=== PATIENT | female | born 1960 ===

== ENCOUNTER 2017-01-09 12:43 | Observation (INO) | payer MEDICAID ==
[2017-01-09] MEDS ORDERED: Sodium Chloride 0.9% 1,000 ML IV STA ×2 (13:25→19:51)
[2017-01-09 13:32] LABS: HEMATOCRIT 41.9 % (34.0-47.0); MEAN CELL VOLUME 89.9 fl (81.0-99.0); MEAN CORPUSCULAR HEMOGLOBIN 30.9 pg (27.0-31.0); MEAN CORPUSCULAR HGB CONC 34.4 g/dL (33.0-37.0); RED CELL DISTRIBUTION WIDTH 13.3 % (11.5-14.5); WHITE BLOOD COUNT 15.9 K/uL (4.8-10.8)
[2017-01-09 13:42] LABS: ALB/GLOB RATIO 1.1 (1.0-2.1); ALKALINE PHOSPHATASE 57 U/L (38-126); ALT/SGPT 30 U/L (9-52); AST/SGOT 42 U/L (14-36); BLOOD UREA NITROGEN 11 mg/dl (7-17); CALCIUM 9.6 mg/dL (8.4-10.2); CARBON DIOXIDE 23 mmol/L (22-30); CHLORIDE 101 mmol/L (98-107); GFR AFRICAN-AMERICAN > 60; GLUCOSE,RANDOM 104 mg/dL (65-105); POTASSIUM 4.4 MMOL/L (3.6-5.0); SODIUM 144 mmol/l (132-148); TOTAL PROTEIN 8.9 G/DL (6.3-8.2)
--- NOTE | 2017-01-09 14:26 | ED PDOC ---
HPI: CCC, URI, Sore Throat Time Seen by Provider: 01/09/17 12:49 Chief Complaint (Nursing): Chest Pain Chief Complaint (Provider): Cough, feverish, chest pain when coughing History Per: Patient History/Exam Limitations: no limitations Have you had recent travel within the past 21 days to any of the following countries: [place], [place], [place] or [place]?: No Onset/Duration Of Symptoms: Days (2) Current Symptoms Are (Timing): Still Present Location Of Pain: Diffuse Myalgias, Headache Sick Contacts (Context): None Associated Symptoms: Fever, Chills, Sore Throat, Cough, Myalgias. denies: Sputum, Neck Pain, Sinus Drainage, Nasal Congestion, Nausea Ear Symptoms: Bilateral: None Severity: Moderate Pain Scale Rating Of: 7 Additional Complaint(s): Pt state she has been taking motrin for fever at home. Pt reports some nausea. Denies vomiting, diarrhea. Past Medical History Reviewed: Historical Data, Nursing Documentation, Vital Signs Vital Signs: Last Vital Signs Temp 98.8 F 01/09/17 15:56 Pulse 98 H 01/09/17 18:09 Resp 23 01/09/17 18:09 BP 140/80 01/09/17 18:09 Pulse Ox 97 01/09/17 18:09 - Medical History PMH: Arthritis, Asthma, Gastritis, HTN, Hypercholesterolemia, Hyperlipidemia, Migraine - Surgical History Surgical History: No Surg Hx - Family History Family History: States: Unknown Family Hx - Living Arrangements Living Arrangements: With Family - Social History Current smoker - smoking cessation education provided: No - Home Medications Home Medications: Ambulatory Orders Medication Instructions Recorded Omeprazole [Prilosec] 20 mg PO DAILY 04/10/15 Albuterol HFA [Ventolin HFA 90 2 puff IH Q4H #1 puff 01/15/16 mcg/actuation (8 g)] Losartan Potassium [Cozaar] 01/09/17 - Allergies Allergies/Adverse Reactions: Allergies Allergy/AdvReac Type Severity Reaction Status Date / Time No Known Allergies Allergy Verified 01/09/17 12:48 Review of Systems ROS Statement: Except As Marked, All Systems Reviewed And Found Negative Constitutional: Negative for: Fever Cardiovascular: Positive for: Chest Pain Respiratory: Positive for: Cough Physical Exam - Reviewed Nursing Documentation Reviewed: Yes Vital Signs Reviewed: Yes - Physical Exam Appears: Positive for: Well, Non-toxic, No Acute Distress Head Exam: Positive for: ATRAUMATIC, NORMAL INSPECTION, NORMOCEPHALIC Skin: Positive for: Normal Color, Warm, DRY Eye Exam: Positive for: Normal appearance ENT: Positive for: Normal ENT Inspection Neck: Positive for: Normal, Painless ROM Cardiovascular/Chest: Positive for: Regular Rate, Rhythm Respiratory: Positive for: CNT, Normal Breath Sounds Gastrointestinal/Abdominal: Positive for: Normal Exam, Bowel Sounds, Soft Back: Positive for: Normal Inspection Extremity: Positive for: Normal ROM Neurologic/Psych: Positive for: Alert, card cutter II-XII, Oriented - Laboratory Results Result Diagrams: 01/09/17 13:10 01/09/17 13:10 - ECG O2 Sat by Pulse Oximetry: 99 Medical Decision Making Medical Decision Making: Lactate 2.3 After 2 L lactate is 3.6 CXR normal WBC 15.6 Urine with wbc and bacteria Case discussed with Dr. Cabezas. Disposition - Clinical Impression Clinical Impression: Sepsis, URI (upper respiratory infection), UTI (urinary tract infection) - Patient ED Disposition Is Patient to be Admitted: Yes - Disposition Disposition Time: 19:57 Condition: GOOD - Pt Status Changed To: Hospital Disposition Of: Inpatient - Admit Certification Admit to Inpatient:: After my assessment, the patient will require hospitalization for at least two midnights. This is because of the severity of symptoms shown, intensity of services needed, and/or the medical risk in this patient being treated as an outpatient. - POA Present On Arrival: None
[2017-01-09] MEDS ORDERED: Albuterol-Ipratrop 3 mg / 0.5 (3 ml) UD INH STA (14:42)
--- NOTE | 2017-01-09 14:42 | RAD ---
HISTORY: chest pain cough, dizziness COMPARISON: 01/15/2016 TECHNIQUE: Chest PA and lateral FINDINGS: LUNGS: No focal airspace opacity. PLEURA: No significant pleural effusion identified. No pneumothorax apparent.Biapical pleural parenchymal thickening noted. CARDIOVASCULAR: Normal. OSSEOUS STRUCTURES: No significant abnormalities. VISUALIZED UPPER ABDOMEN: Normal. OTHER FINDINGS: None. IMPRESSION: No focal airspace opacity. No significant interval change.
[2017-01-09 15:19] LABS: VENOUS BLOOD GAS BASE EXCESS 4.2 mmol/L (0.0-2.0); VENOUS BLOOD GAS PCO2 55 mmHg (40-60); VENOUS BLOOD PH 7.36 (7.32-7.43)
[2017-01-09 15:35] LABS: RBC URINE 3 /hpf (0-3); URINE BACTERIA FEW (<OCC); URINE BILIRUBIN NEGATIVE (NEGATIVE); URINE BLOOD NEGATIVE (NEGATIVE); URINE COLOR STRAW (YELLOW); URINE GLUCOSE (UA) NEG (Normal); URINE KETONE NEGATIVE (NEGATIVE); URINE LEUKOCYTE ESTERASE MOD Leu/uL (Negative); URINE PROTEIN NEGATIVE (NEGATIVE); URINE UROBILINOGEN 0.2-1.0 mg/dL (0.2-1.0); WBC URINE 19 /hpf (0-5)
[2017-01-09] MEDS ORDERED: Albuterol-Ipratrop 3 mg / 0.5 (3 ml) UD ONE (16:55)
[2017-01-09] MEDS ORDERED: cefTRIAXone (Rocephin) 1 gm Inj ONE (19:28)
[2017-01-09] MEDS ORDERED: Albuterol HFA 90 mcg/actuation (8 g) IH SCH (20:00)
--- NOTE | 2017-01-09 20:12 | CP.PCM.HP ---
History of Present Illness - History of Present Illness History of Present Illness: CC: malaise, respiratory symptoms HPI: This is a 56 y/o female with MHx significant for asthma, HTN, HLD, gastritis and migraines who presents with malaise and mainly respiratory symptoms including productive cough, SOB. She also has n/v, but no diarrhea. She does have a sore throat as well as f/c. Symptoms started yesterday. No travel or sick contacts or unusual exposures. ROS: 14 systems reviewed and negative other than HPI MHx: asthma, HTN, HLD, gastritis and migraines SHx: None Allergies: NKDA Medications: as per med rec Family Hx: Reviewed, no relevant Social Hx: Lives with family, denies tobacco or significant EtOH use Present on Admission - Present on Admission Any Indicators Present on Admission: No Past Patient History - Past Social History Smoking Status: Never Smoked - CARDIAC Hx Hypercholesterolemia: Yes Hx Hypertension: Yes - PULMONARY Hx Asthma: Yes - NEUROLOGICAL Hx Migraine: Yes - MUSCULOSKELETAL/RHEUMATOLOGICAL Hx Arthritis: Yes - GASTROINTESTINAL Hx Gastritis: Yes - PSYCHIATRIC Hx Substance Use: No - ANESTHESIA Hx Anesthesia: No Meds Allergies/Adverse Reactions: Allergies Allergy/AdvReac Type Severity Reaction Status Date / Time No Known Allergies Allergy Verified 01/09/17 12:48 Results - Vital Signs Recent Vital Signs: Last Vital Signs Temp 98.8 F 01/09/17 15:56 Pulse 98 H 01/09/17 18:09 Resp 23 01/09/17 18:09 BP 140/80 01/09/17 18:09 Pulse Ox 99 01/09/17 19:59 - Labs Result Diagrams: 01/09/17 13:10 01/09/17 13:10 Labs: Laboratory Results - last 24 hr 01/09/17 01/09/17 18:30 19:10 Lactic Acid 3.6 H Grp A Beta Strep Ag Negative Assessment & Plan (1) Sepsis Assessment and Plan: 56 y/o female with sepsis 2/2 either UTI or respiratory infection (or both). 1) Sepsis/UTI/?PNA -f/u cultures -Repeat lactic acid -Continue ceftriaxone, will add azithromycin as well given respiratory symptoms -Cont IVF -Tylenol for fever 2) HTN -- cont home medications 3) DVT PPx -- SQ Lovenox Status: Acute (2) URI (upper respiratory infection) Status: Acute (3) UTI (urinary tract infection) Status: Acute (4) HTN (hypertension) Status: Acute
[2017-01-09] MEDS ORDERED: Albuterol-Ipratrop 3 mg / 0.5 (3 ml) UD INH PRN (20:26)
[2017-01-09] MEDS ORDERED: Azithromycin 500 MG in Sodium Chloride 0.9% 250 ML IVPB STA (20:27)
[2017-01-10] MEDS: Sodium Chloride 0.9% 1,000 ML IV SCH ×2 (00:10→06:07)
[2017-01-10 07:25] LABS: BASO % 0.3 % (0.0-2.0); EOS # 0.2 K/uL (0.0-0.7); EOS % 1.6 % (0.0-4.0); HEMATOCRIT 36.9 % (34.0-47.0); LYMPH # 3.3 K/uL (1.0-4.3); LYMPH % 24.1 % (20.0-40.0); MEAN CELL VOLUME 91.1 fl (81.0-99.0); MEAN CORPUSCULAR HEMOGLOBIN 30.5 pg (27.0-31.0); MEAN CORPUSCULAR HGB CONC 33.5 g/dL (33.0-37.0); MEAN PLATELET VOLUME 10.5 fl (7.2-11.7); MONO # 1.2 K/uL (0.0-0.8); MONO % 9.2 % (0.0-10.0); NEUT # 8.8 K/uL (1.8-7.0); NEUT % 64.8 % (50.0-75.0); NRBC % 0.1 % (0.0-0.0); RED CELL DISTRIBUTION WIDTH 13.4 % (11.5-14.5); WHITE BLOOD COUNT 13.5 K/uL (4.8-10.8)
[2017-01-10 07:52] LABS: BLOOD UREA NITROGEN 11 mg/dl (7-17); CALCIUM 8.4 mg/dL (8.4-10.2); CARBON DIOXIDE 25 mmol/L (22-30); CHLORIDE 103 mmol/L (98-107); GFR AFRICAN-AMERICAN > 60; GLUCOSE,RANDOM 117 mg/dL (65-105); SODIUM 143 mmol/l (132-148)
[2017-01-10] MEDS ORDERED: Azithromycin 500 MG in Sodium Chloride 0.9% 250 ML IVPB SCH (09:00)
[2017-01-10] MEDS ORDERED: Enoxaparin 40 mg Syringe SC SCH (09:00)
[2017-01-10] MEDS ORDERED: Pantoprazole 40 mg EC Tab PO SCH (09:00)
--- NOTE | 2017-01-10 11:43 | CP.PCM.PN ---
Objective - Vital Signs/Intake and Output Vital Signs (last 24 hours): Temp Pulse Resp BP Pulse Ox 98.9 F 96 H 18 98/63 L 95 01/10/17 08:00 01/10/17 09:48 01/10/17 08:00 01/10/17 09:48 01/10/17 08:00 Intake and Output: 01/10/17 01/10/17 06:59 18:59 Intake Total 720 Output Total 300 Balance 420 - Medications Medications: Current Medications Acetaminophen (Tylenol 325mg Tab) 650 mg PO Q6 PRN PRN Reason: Fever >100.4 F Albuterol/Ipratropium (Duoneb 3 Mg/0.5 Mg (3 Ml) Ud) 3 ml INH RQ6 PRN PRN Reason: Shortness of Breath Last Admin: 01/10/17 05:47 Dose: 3 ml Enoxaparin Sodium (Lovenox) 40 mg SC DAILY CHAVO PRN Reason: Protocol Last Admin: 01/10/17 09:48 Dose: 40 mg Sodium Chloride (Sodium Chloride 0.9%) 1,000 mls @ 100 mls/hr IV .Q10H [facility] Stop: 01/10/17 15:59 Last Admin: 01/10/17 06:07 Dose: 100 mls/hr Ceftriaxone Sodium 1 gm/ (Sodium Chloride) 100 mls @ 100 mls/hr IVPB DAILY [facility] Last Admin: 01/10/17 10:37 Dose: 100 mls/hr Azithromycin 500 mg/ Sodium (Chloride) 250 mls @ 250 mls/hr IVPB DAILY [facility] Last Admin: 01/10/17 09:45 Dose: 250 mls/hr Losartan Potassium (Cozaar) 12.5 mg PO DAILY [facility] Last Admin: 01/10/17 09:48 Dose: Not Given Ondansetron HCl (Zofran Inj) 4 mg IVP Q6 PRN PRN Reason: Nausea/Vomiting Last Admin: 01/10/17 04:34 Dose: 4 mg Pantoprazole Sodium (Protonix Ec Tab) 40 mg PO DAILY [facility] Last Admin: 01/10/17 09:48 Dose: 40 mg - Labs Labs: 01/10/17 06:55 01/10/17 06:55
[2017-01-10 12:18] VITALS: RESP 20
--- NOTE | 2017-01-10 14:26 | RAD ---
HISTORY: r/o pneumonia COMPARISON: Comparison chest 01/09/2017. TECHNIQUE: Chest PA and lateral FINDINGS: LUNGS: There appears to be some minor bibasilar atelectasis left greater than right. Mild biapical pleural thickening. PLEURA: No significant pleural effusion identified. No pneumothorax apparent. CARDIOVASCULAR: Normal. OSSEOUS STRUCTURES: Minor multilevel degenerative spondylosis of the thoracic spine VISUALIZED UPPER ABDOMEN: Normal. OTHER FINDINGS: None. IMPRESSION: Mild bibasilar atelectasis left greater than right with mild biapical pleural thickening.
--- NOTE | 2017-01-10 15:29 | CP.PCM.DIS ---
Provider - Provider Date of Admission: 01/09/17 19:57 Attending physician: Fercho De La Cruz MD Primary care physician: Isaiah Morris MD Time Spent in preparation of Discharge (in minutes): 35 Diagnosis - Discharge Diagnosis (1) Sepsis Status: Acute (2) UTI (urinary tract infection) Status: Acute (3) URI (upper respiratory infection) Status: Acute (4) Mild intermittent asthma Status: Chronic (5) HTN (hypertension) Status: Chronic Hospital Course - Lab Results Lab Results: Most Recent Lab Values WBC 13.5 K/uL (4.8-10.8) H 01/10/17 06:55 RBC 4.05 Mil/uL (3.80-5.20) 01/10/17 06:55 Hgb 12.4 g/dL (12.0-16.0) D 01/10/17 06:55 Hct 36.9 % (34.0-47.0) 01/10/17 06:55 MCV 91.1 fl (81.0-99.0) 01/10/17 06:55 MCH 30.5 pg (27.0-31.0) 01/10/17 06:55 MCHC 33.5 g/dL (33.0-37.0) 01/10/17 06:55 RDW 13.4 % (11.5-14.5) 01/10/17 06:55 Plt Count 147 K/uL (130-400) 01/10/17 06:55 MPV 10.5 fl (7.2-11.7) 01/10/17 06:55 Neut % (Auto) 64.8 % (50.0-75.0) 01/10/17 06:55 Lymph % (Auto) 24.1 % (20.0-40.0) 01/10/17 06:55 [place] % (Auto) 9.2 % (0.0-10.0) 01/10/17 06:55 Eos % (Auto) 1.6 % (0.0-4.0) 01/10/17 06:55 Baso % (Auto) 0.3 % (0.0-2.0) 01/10/17 06:55 Neut # 8.8 K/uL (1.8-7.0) H 01/10/17 06:55 Lymph # 3.3 K/uL (1.0-4.3) 01/10/17 06:55 [place] # 1.2 K/uL (0.0-0.8) H 01/10/17 06:55 Eos # 0.2 K/uL (0.0-0.7) 01/10/17 06:55 Baso # 0.0 K/uL (0.0-0.2) 01/10/17 06:55 pO2 20 mm/Hg (30-55) L 01/09/17 15:15 VBG pH 7.36 (7.32-7.43) 01/09/17 15:15 VBG pCO2 55 mmHg (40-60) 01/09/17 15:15 VBG HCO3 26.4 mmol/L 01/09/17 15:15 VBG Total CO2 32.8 mmol/L (22-28) H 01/09/17 15:15 VBG O2 Sat (Calc) 35.3 % (40-65) L 01/09/17 15:15 VBG Base Excess 4.2 mmol/L (0.0-2.0) H 01/09/17 15:15 VBG Potassium 4.4 mmol/L (3.6-5.2) 01/09/17 15:15 Sodium 137.0 mmol/L (132-148) 01/09/17 15:15 Chloride 103.0 mmol/L (98-107) 01/09/17 15:15 Glucose 103 mg/dL (65-105) 01/09/17 15:15 Lactate 2.3 mmol/L (0.7-2.1) H 01/09/17 15:15 FiO2 21.0 % 01/09/17 15:15 Sodium 143 mmol/l (132-148) 01/10/17 06:55 Potassium 4.0 MMOL/L (3.6-5.0) 01/10/17 06:55 Chloride 103 mmol/L (98-107) 01/10/17 06:55 Carbon Dioxide 25 mmol/L (22-30) 01/10/17 06:55 Anion Gap 19 (10-20) 01/10/17 06:55 BUN 11 mg/dl (7-17) 01/10/17 06:55 Creatinine 0.9 mg/dL (0.7-1.2) 01/10/17 06:55 Est GFR ( Amer) > 60 01/10/17 06:55 Est GFR (Non-Af Amer) > 60 01/10/17 06:55 Random Glucose 117 mg/dL (65-105) H 01/10/17 06:55 Lactic Acid 1.1 MMOL/L (0.7-2.1) 01/10/17 12:45 Calcium 8.4 mg/dL (8.4-10.2) 01/10/17 06:55 Total Bilirubin 1.0 mg/dl (0.2-1.3) 01/09/17 13:10 AST 42 U/L (14-36) H D 01/09/17 13:10 ALT 30 U/L (9-52) 01/09/17 13:10 Alkaline Phosphatase 57 U/L (38-126) 01/09/17 13:10 Troponin I < 0.0120 ng/mL (0.00-0.120) 01/09/17 13:10 Total Protein 8.9 G/DL (6.3-8.2) H 01/09/17 13:10 Albumin 4.6 g/dL (3.5-5.0) 01/09/17 13:10 Globulin 4.3 gm/dL (2.2-3.9) H 01/09/17 13:10 Albumin/Globulin Ratio 1.1 (1.0-2.1) 01/09/17 13:10 Venous Blood Potassium 4.4 mmol/L (3.6-5.2) 01/09/17 15:15 Urine Color Straw (YELLOW) 01/09/17 15:00 Urine Clarity Clear (Clear) 01/09/17 15:00 Urine pH 7.0 (5.0-8.0) 01/09/17 15:00 Ur Specific [place] 1.008 (1.003-1.030) 01/09/17 15:00 Urine Protein Negative mg/dL (NEGATIVE) 01/09/17 15:00 Urine Glucose (UA) Neg mg/dL (Normal) 01/09/17 15:00 Urine Ketones Negative mg/dL (NEGATIVE) 01/09/17 15:00 Urine Blood Negative (NEGATIVE) 01/09/17 15:00 Urine Nitrate Negative (NEGATIVE) 01/09/17 15:00 Urine Bilirubin Negative (NEGATIVE) 01/09/17 15:00 Urine Urobilinogen 0.2-1.0 mg/dL (0.2-1.0) 01/09/17 15:00 Ur Leukocyte Esterase Mod [place]/uL (Negative) 01/09/17 15:00 Urine RBC (Auto) 3 /hpf (0-3) 01/09/17 15:00 Urine Microscopic WBC 19 /hpf (0-5) H 01/09/17 15:00 Ur Squamous Epith Cells 2 /hpf (0-5) 01/09/17 15:00 Urine Bacteria Few (<OCC) H 01/09/17 15:00 Influenza Typ A,B (EIA) Negative for flu a/b (NEGATIVE) 01/09/17 13:46 Grp A Beta Strep Ag Negative (NEGATIVE) 01/09/17 19:10 - Hospital Course Hospital Course: 56 y/o lady with hx of ZHTN, Gastritis, Mild Asthma, came in because of fever and cough. Noted to have fever, elevated WBC and elevated Lactate. Urinalysis showed WBCs and leukoest. She was admitted to Telemetry , started on IVF hydration and IV antibitics. Influenza A and B neg. CXR : no infiltrate. Blood and Urine c/s sent . Patient's sxs improved , Her Lactate became normal , WBC trended down and is now afebrile. She received 2 days of IV antibitotics. Pt wants to go home and refused further IV antibiotics in the hospital, refused to wait for culture results. (1) Sepsis sec to UTI and URI Status: Acute IVF hydration started on IV ceftriaxone and Azithro Blood c/s, Urine c/s: pending Pt refused to stay for further IV abx and wants to go home. Daughter at bedside , understands explanation of risks, benefits Elevated lactate= 3 , rpt Lactate :normalized no fever, URI sxs improved (2) UTI (urinary tract infection) Status: Acute UA : showed WBCs and leukoesterase on IV ceftriaxone urine c/s; pending (3) URI (upper respiratory infection) Status: Acute URI sxs improved rpt CXR : no infiltrate o IV ceftriaxone and Azithro (4) Mild intermittent asthma Status: Chronic Albuterol prn (5) HTN (hypertension) Status: Chronic on Losartan Discharge Exam - Head Exam Head Exam: ATRAUMATIC, NORMAL INSPECTION, NORMOCEPHALIC - Eye Exam Eye Exam: EOMI, Normal appearance, PERRL Pupil Exam: NORMAL ACCOMODATION - ENT Exam ENT Exam: Mucous Membranes Moist, Normal External Ear Exam - Neck Exam Neck exam: Full Rom - Respiratory Exam Respiratory Exam: Rhonchi, NORMAL BREATHING PATTERN. absent: Rales, Wheezes, Respiratory Distress - Cardiovascular Exam Cardiovascular Exam: REGULAR RHYTHM, +S1, +S2 - GI/Abdominal Exam GI & Abdominal Exam: Normal Bowel Sounds, Soft. absent: Unremarkable - Extremities Exam Extremities exam: full ROM, normal capillary refill, normal inspection, pedal pulses present - Neurological Exam Neurological exam: Alert, CN II-XII Intact, Normal Gait, Oriented x3, Reflexes Normal - Psychiatric Exam Psychiatric exam: Normal Affect, Normal Mood - Skin Skin Exam: Dry, Intact, Normal Color, Warm Discharge Plan - Discharge Medications Prescriptions: levoFLOXacin [Levaquin] 500 mg PO DAILY #7 tab - Follow Up Plan Condition: GOOD Disposition: HOME/ ROUTINE Additional Instructions: ff up with PMD dewayne Referrals: Isaiah Morris MD [Primary Care Provider] -
[2017-01-10 17:08] VITALS: BP 116/73; PULSE 83; TEMP 98; O2SAT 96
== END 2017-01-10 17:15 | disposition home or self-care (01) ==
LOC: H.ER 12:43 → H.EROBSV 16:04 → OBSVTOIN 19:57 → INTOOBSV 19:57 → H.ERHOLD 19:57 → H.TEL 22:52
PROVIDERS: ADMIT Internal Medicine; ATTEND Internal Medicine
DX: A41.9 Sepsis, unspecified organism (principal); E78.00 Pure hypercholesterolemia, unspecified; E78.5 Hyperlipidemia, unspecified; G43.909 Migraine, unspecified, not intractable, without status migrainosus; J45.20 Mild intermittent asthma, uncomplicated; K29.70 Gastritis, unspecified, without bleeding; N39.0 Urinary tract infection, site not specified; J06.9 Acute upper respiratory infection, unspecified; I10 Essential (primary) hypertension

== ENCOUNTER 2017-01-25 11:26 | Emergency (ER) | payer MEDICAID ==
[2017-01-25 11:36] VITALS: BP 144/68; RESP 20; TEMP 98.4; O2SAT 99
--- NOTE | 2017-01-25 12:20 | ED PDOC ---
HPI: General Adult Time Seen by Provider: 01/25/17 11:45 Chief Complaint (Nursing): Chest Pain Chief Complaint (Provider): Rash, cough History Per: Patient Additional Complaint(s): Pt. states for the past 6 months she's had intermittent episodes of cough and wheezing. Over the past 2-3 weeks symptoms have worsened and now involve a pruritic intermittent erythematous rash on neck, around mouth, and around both eyes. Currently without any symptoms. Denies hx of previous allergic reactions, throat swelling, fever, chest pain. Past Medical History Reviewed: Historical Data, Nursing Documentation, Vital Signs Vital Signs: Last Vital Signs Temp 98.4 F 01/25/17 11:35 Pulse 70 01/25/17 11:35 Resp 20 01/25/17 11:35 BP 144/68 01/25/17 11:35 Pulse Ox 99 01/25/17 11:35 - Medical History PMH: Arthritis, Asthma, Gastritis, HTN, Hypercholesterolemia, Hyperlipidemia, Migraine Denies: HIV, Chronic Kidney Disease - Family History Family History: States: No Known Family Hx - Home Medications Home Medications: Ambulatory Orders Medication Instructions Recorded Omeprazole [Prilosec] 20 mg PO DAILY 04/10/15 Albuterol HFA [Ventolin HFA 90 2 puff IH Q4H #1 puff 01/15/16 mcg/actuation (8 g)] Losartan Potassium [Cozaar] 12.5 mg PO DAILY 01/09/17 levoFLOXacin [Levaquin] 500 mg PO DAILY #7 tab 01/10/17 Albuterol 0.083% [Albuterol 3 ml IH Q4 PRN #50 neb 01/25/17 Sulfate 3 Ml] DiphenhydrAMINE [Benadryl] 1 - 2 cap PO Q4H PRN #30 cap 01/25/17 Methylprednisolone [Medrol Dose 4 mg PO DAILY #21 mg 01/25/17 Pack (21 tabs)] Nebulizer [Aeroeclipse] 1 each MC Q4 PRN #1 each 01/25/17 - Allergies Allergies/Adverse Reactions: Allergies Allergy/AdvReac Type Severity Reaction Status Date / Time No Known Allergies Allergy Verified 01/09/17 12:48 Review of Systems ROS Statement: Except As Marked, All Systems Reviewed And Found Negative Respiratory: Positive for: Cough, Wheezing Skin: Positive for: Rash Physical Exam - Reviewed Nursing Documentation Reviewed: Yes Vital Signs Reviewed: Yes - Physical Exam Appears: Positive for: Well, Non-toxic, No Acute Distress Head Exam: Positive for: ATRAUMATIC, NORMAL INSPECTION, NORMOCEPHALIC Skin: Positive for: Normal Color, Warm. Negative for: Rash Eye Exam: Positive for: EOMI, Normal appearance, PERRL ENT: Positive for: Normal ENT Inspection Neck: Positive for: Normal, Painless ROM Cardiovascular/Chest: Positive for: Regular Rate, Rhythm Respiratory: Positive for: Normal Breath Sounds. Negative for: Wheezing Gastrointestinal/Abdominal: Positive for: Normal Exam, Soft. Negative for: Tenderness Back: Positive for: Normal Inspection Extremity: Positive for: Normal ROM Neurologic/Psych: Positive for: Alert, Oriented - ECG ECG: Positive for: Interpreted By Me ECG Rhythm: Positive for: Sinus Rhythm. Negative for: ST/T Changes Rate: 74 O2 Sat by Pulse Oximetry: 99 Disposition - Clinical Impression Clinical Impression: Hay fever with asthma - Patient ED Disposition Is Patient to be Admitted: No - Disposition Disposition: Routine/Home Disposition Time: 12:10 Condition: STABLE Prescriptions: Nebulizer [Aeroeclipse] 1 each MC Q4 PRN #1 each PRN Reason: Wheezing Albuterol 0.083% [Albuterol Sulfate 3 Ml] 3 ml IH Q4 PRN #50 neb PRN Reason: Wheezing DiphenhydrAMINE [Benadryl] 1 - 2 cap PO Q4H PRN #30 cap PRN Reason: Other Methylprednisolone [Medrol Dose Pack (21 tabs)] 4 mg PO DAILY #21 mg Instructions: Asthma (ED) Print Language: GERMAN
[2017-01-25 12:21] VITALS: PULSE 74
== END 2017-01-25 12:18 | disposition home or self-care (01) ==
LOC: H.ER 11:26
DX: J45.909 Unspecified asthma, uncomplicated (principal)

== ENCOUNTER 2017-05-21 12:21 | Inpatient (IN) | payer MEDICAID ==
[2017-05-21] MEDS ORDERED: Albuterol-Ipratrop 3 mg / 0.5 (3 ml) UD INH STA ×2 (13:16→13:17)
--- NOTE | 2017-05-21 13:38 | ED PDOC ---
HPI: SOB/CHF/COPD Time Seen by Provider: 05/21/17 12:34 Chief Complaint (Nursing): Shortness Of Breath Chief Complaint (Provider): Cough with chest pain History Per: Patient History/Exam Limitations: no limitations Onset/Duration Of Symptoms: Days (x 2 weeks) Current Symptoms Are (Timing): Still Present Additional Complaint(s): Vickie is a 56 y/o female with a past medical history of asthma and hypertension, who presents to the ED complaining of a dry cough associated with posttussive vomiting, ongoing for 2 weeks. has been using her nebulizer and pump at home without relief. She reports chest pain with cough only. Denies fever and palpitations. PMD: Unknown Past Medical History Reviewed: Historical Data, Nursing Documentation, Vital Signs Vital Signs: Last Vital Signs Temp 98.3 F 05/21/17 13:01 Pulse 76 05/21/17 13:01 Resp 16 05/21/17 13:47 BP 131/71 05/21/17 13:01 Pulse Ox 100 05/21/17 16:37 - Medical History PMH: Arthritis, Asthma, Gastritis, HTN, Hypercholesterolemia, Hyperlipidemia, Migraine Denies: HIV, Chronic Kidney Disease - Surgical History Other surgeries: Tubal ligation - Family History Family History: States: Unknown Family Hx - Social History Current smoker - smoking cessation education provided: No Alcohol: None Drugs: Denies - Home Medications Home Medications: Ambulatory Orders Medication Instructions Recorded Omeprazole [Prilosec] 20 mg PO DAILY 04/10/15 Albuterol HFA [Ventolin HFA 90 2 puff IH Q4H #1 puff 01/15/16 mcg/actuation (8 g)] Losartan Potassium [Cozaar] 12.5 mg PO DAILY 01/09/17 levoFLOXacin [Levaquin] 500 mg PO DAILY #7 tab 01/10/17 Albuterol 0.083% [Albuterol 3 ml IH Q4 PRN #50 neb 01/25/17 Sulfate 3 Ml] DiphenhydrAMINE [Benadryl] 1 - 2 cap PO Q4H PRN #30 cap 01/25/17 Methylprednisolone [Medrol Dose 4 mg PO DAILY #21 mg 01/25/17 Pack (21 tabs)] Nebulizer [Aeroeclipse] 1 each MC Q4 PRN #1 each 01/25/17 - Allergies Allergies/Adverse Reactions: Allergies Allergy/AdvReac Type Severity Reaction Status Date / Time No Known Allergies Allergy Verified 05/21/17 12:25 Review of Systems ROS Statement: Except As Marked, All Systems Reviewed And Found Negative Constitutional: Negative for: Fever Cardiovascular: Positive for: Chest Pain (only with cough). Negative for: Palpitations Respiratory: Positive for: Cough Gastrointestinal: Positive for: Vomiting (posttussive) Physical Exam - Reviewed Nursing Documentation Reviewed: Yes Vital Signs Reviewed: Yes - Physical Exam Appears: Positive for: Non-toxic, No Acute Distress Head Exam: Positive for: ATRAUMATIC Skin: Positive for: Normal Color, Warm, Dry Eye Exam: Positive for: EOMI, Normal appearance, PERRL ENT: Positive for: Normal ENT Inspection Neck: Positive for: Normal, Painless ROM, Supple Cardiovascular/Chest: Positive for: Regular Rate, Rhythm. Negative for: Murmur Respiratory: Positive for: Wheezing (bilaterally) Gastrointestinal/Abdominal: Positive for: Normal Exam, Soft. Negative for: Tenderness Back: Positive for: Normal Inspection. Negative for: Vertebral Tenderness Extremity: Positive for: Normal ROM. Negative for: Pedal Edema, Deformity Neurologic/Psych: Positive for: Alert, Oriented - Laboratory Results Result Diagrams: 05/21/17 13:50 05/21/17 13:50 - ECG O2 Sat by Pulse Oximetry: 100 (RA) Pulse Ox Interpretation: Normal Medical Decision Making Medical Decision Making: Time: 13:16 Initial Impression: Asthma Exacerbation and Pleuritic Chest Pain Initial Plan: --CMP --CBC --Troponin I --EKG --CXR 2 views --Duoneb 3 ml INH --Solu-Medrol 125 mg IV --Peak Flow pre/post treatment --Pending reevaluation Time: 15:24 Chest X-Ray: FINDINGS: LUNGS: Question left upper lobe mass for which correlation with CT scan of the chest is recommended. PLEURA: No significant pleural effusion identified. No pneumothorax apparent. CARDIOVASCULAR: Normal. OSSEOUS STRUCTURES: No significant abnormalities. VISUALIZED UPPER ABDOMEN: Normal. OTHER FINDINGS: None. IMPRESSION: Question left upper lobe mass for which correlation with CT scan of the chest is recommended. Time: 15:58 --Ordered CT Chest w/o contrast Scribe Attestation: Documented by Elissa Garcia, acting as a scribe for Emma Bhatti MD Provider Scribe Attestation: All medical record entries made by the Scribe were at my direction and personally dictated by me. I have reviewed the chart and agree that the record accurately reflects my personal performance of the history, physical exam, medical decision making, and the department course for this patient. I have also personally directed, reviewed, and agree with the discharge instructions and disposition. Disposition - Clinical Impression Clinical Impression: Asthma exacerbation, Pneumonitis - Patient ED Disposition Is Patient to be Admitted: Yes - Disposition Disposition Time: 17:43 Condition: STABLE Forms: mobintent (Japanese) - Pt Status Changed To: Hospital Disposition Of: Inpatient - Admit Certification Admit to Inpatient:: After my assessment, the patient will require hospitalization for at least two midnights. This is because of the severity of symptoms shown, intensity of services needed, and/or the medical risk in this patient being treated as an outpatient. - POA Present On Arrival: None
[2017-05-21] MEDS ORDERED: Albuterol-Ipratrop 3 mg / 0.5 (3 ml) UD ONE ×2 (13:54→13:55)
[2017-05-21 13:58] LABS: BASO % 0.5 % (0.0-2.0); EOS # 0.2 K/uL (0.0-0.7); EOS % 1.9 % (0.0-4.0); HEMOGLOBIN 13.4 g/dL (12.0-16.0); LYMPH # 2.8 K/uL (1.0-4.3); MEAN CELL VOLUME 90.9 fl (81.0-99.0); MEAN CORPUSCULAR HEMOGLOBIN 30.2 pg (27.0-31.0); MEAN CORPUSCULAR HGB CONC 33.3 g/dL (33.0-37.0); MEAN PLATELET VOLUME 10.5 fl (7.2-11.7); MONO # 0.7 K/uL (0.0-0.8); MONO % 7.8 % (0.0-10.0); NEUT # 4.8 K/uL (1.8-7.0); NEUT % 56.8 % (50.0-75.0); NRBC % 0.1 % (0.0-0.0); RBC 4.43 Mil/uL (3.80-5.20); RED CELL DISTRIBUTION WIDTH 12.8 % (11.5-14.5); WHITE BLOOD COUNT 8.4 K/uL (4.8-10.8)
[2017-05-21 14:06] LABS: ALB/GLOB RATIO 1.2 (1.0-2.1); ALBUMIN 4.4 g/dL (3.5-5.0); ALT/SGPT 38 U/L (9-52); AST/SGOT 26 U/L (14-36); BLOOD UREA NITROGEN 13 mg/dl (7-17); CALCIUM 9.2 mg/dL (8.4-10.2); GFR AFRICAN-AMERICAN > 60; GFR NON-AFRICAN AMERICAN > 60
--- NOTE | 2017-05-21 15:26 | RAD ---
HISTORY: SOB COMPARISON: 01/10/2017 TECHNIQUE: Chest PA and lateral FINDINGS: LUNGS: Question left upper lobe mass for which correlation with CT scan of the chest is recommended. PLEURA: No significant pleural effusion identified. No pneumothorax apparent. CARDIOVASCULAR: Normal. OSSEOUS STRUCTURES: No significant abnormalities. VISUALIZED UPPER ABDOMEN: Normal. OTHER FINDINGS: None. IMPRESSION: Question left upper lobe mass for which correlation with CT scan of the chest is recommended.
[2017-05-21] MEDS ORDERED: cefTRIAXone (Rocephin) 1 gm Inj ONE (17:47)
--- NOTE | 2017-05-21 19:50 | CT ---
PROCEDURE: CT Chest without contrast HISTORY: Abnormal CXR COMPARISON: None. TECHNIQUE: Contiguous axial images were obtained through the chest without intravenous contrast enhancement. Sagittal and coronal reconstructions were performed. Radiation dose (DLP): 436 mGy-cm. This CT exam was performed using one or more of the following dose reduction techniques: Automated exposure control, adjustment of the mA and/or kV according to patient size, and/or use of iterative reconstruction technique. FINDINGS: LUNGS: There is a left upper lobe interstitial infiltrate/pneumonitis as well as a 5 millimeter nodule in the left upper lobe. MEDIASTINUM: Unremarkable thoracic aorta. No aneurysm. Normal sized heart. Main pulmonary artery unremarkable. No vascular congestion. No lymphadenopathy. PLEURA: No pleural fluid. No pneumothorax. BONES: No fracture. No destructive lesion. UPPER ABDOMEN: Grossly unremarkable. OTHER FINDINGS: None. IMPRESSION: There is a left upper lobe interstitial infiltrate/pneumonitis as well as a 5 millimeter nodule in the left upper lobe. Recommend 1 year follow-up.
[2017-05-21] MEDS ORDERED: Albuterol 0.083% Inhal Sol (2.5 mg/3 mL) UD IH PRN (21:28)
[2017-05-21] MEDS ORDERED: Pneumococcal 23-Valent Vaccine IM ONE (22:31)
[2017-05-22] MEDS: methylPREDNISolone 125 MG in Sodium Chloride 0.9% 50 ML IVPB SCH ×2 (01:48→13:23)
--- NOTE | 2017-05-22 09:42 | CARD ---
APPROVED REPORT EKG Measurement Heart [id number] [id number] <Conclusion> Normal sinus rhythm Normal ECG
[2017-05-23] MEDS: methylPREDNISolone 125 MG in Sodium Chloride 0.9% 50 ML IVPB SCH ×2 (00:08→13:37)
[2017-05-23 08:02] VITALS: RESP 20
--- NOTE | 2017-05-23 10:12 | CP.PCM.HP ---
History of Present Illness - History of Present Illness History of Present Illness: This is a 56 y/o female admitted for dry cough SOB . CXR showed pneumonitis. she was started on IV rocephin and solumedrol iv. Claims that symptoms has been going on for the past few days, Past Patient History - Past Medical History & Family History Past Medical History?: Yes - Past Social History Smoking Status: Never Smoked - CARDIAC Hx Hypercholesterolemia: Yes Hx Hypertension: Yes - PULMONARY Hx Asthma: Yes - NEUROLOGICAL Hx Migraine: Yes - HEENT Hx HEENT Problems: No - RENAL Hx Chronic Kidney Disease: No - ENDOCRINE/METABOLIC Hx Endocrine Disorders: No - HEMATOLOGICAL/ONCOLOGICAL Hx AIDS: No Hx Human Immunodeficiency Virus (HIV): No - INTEGUMENTARY Hx Dermatological Problems: No - MUSCULOSKELETAL/RHEUMATOLOGICAL Hx Arthritis: Yes Hx Falls: No - GASTROINTESTINAL Hx Gastritis: Yes - GENITOURINARY/GYNECOLOGICAL Hx Urinary Tract Infection: Yes - PSYCHIATRIC Hx Substance Use: No - SURGICAL HISTORY Hx Tubal Ligation: Yes - ANESTHESIA Hx Anesthesia: Yes Hx Anesthesia Reactions: No Hx Malignant Hyperthermia: No Meds Allergies/Adverse Reactions: Allergies Allergy/AdvReac Type Severity Reaction Status Date / Time No Known Allergies Allergy Verified 05/21/17 12:25 Results - Vital Signs Recent Vital Signs: Last Vital Signs Temp 97.7 F 05/23/17 08:01 Pulse 73 05/23/17 09:28 Resp 20 05/23/17 08:01 BP 125/73 05/23/17 09:28 Pulse Ox 94 L 05/23/17 08:01 - Labs Result Diagrams: 05/21/17 13:50 05/21/17 13:50
--- NOTE | 2017-05-23 10:13 | CP.PCM.DIS ---
Provider - Provider Date of Admission: 05/21/17 17:42 Attending physician: Nabor Holland MD Hospital Course - Lab Results Lab Results: Most Recent Lab Values WBC 8.4 K/uL (4.8-10.8) 05/21/17 13:50 RBC 4.43 Mil/uL (3.80-5.20) 05/21/17 13:50 Hgb 13.4 g/dL (12.0-16.0) 05/21/17 13:50 Hct 40.3 % (34.0-47.0) 05/21/17 13:50 MCV 90.9 fl (81.0-99.0) 05/21/17 13:50 MCH 30.2 pg (27.0-31.0) 05/21/17 13:50 MCHC 33.3 g/dL (33.0-37.0) 05/21/17 13:50 RDW 12.8 % (11.5-14.5) 05/21/17 13:50 Plt Count 190 K/uL (130-400) 05/21/17 13:50 MPV 10.5 fl (7.2-11.7) 05/21/17 13:50 Neut % (Auto) 56.8 % (50.0-75.0) 05/21/17 13:50 Lymph % (Auto) 33.0 % (20.0-40.0) 05/21/17 13:50 [place] % (Auto) 7.8 % (0.0-10.0) 05/21/17 13:50 Eos % (Auto) 1.9 % (0.0-4.0) 05/21/17 13:50 Baso % (Auto) 0.5 % (0.0-2.0) 05/21/17 13:50 Neut # 4.8 K/uL (1.8-7.0) 05/21/17 13:50 Lymph # 2.8 K/uL (1.0-4.3) 05/21/17 13:50 [place] # 0.7 K/uL (0.0-0.8) 05/21/17 13:50 Eos # 0.2 K/uL (0.0-0.7) 05/21/17 13:50 Baso # 0.0 K/uL (0.0-0.2) 05/21/17 13:50 Sodium 140 mmol/l (132-148) 05/21/17 13:50 Potassium 4.0 MMOL/L (3.6-5.0) 05/21/17 13:50 Chloride 102 mmol/L (98-107) 05/21/17 13:50 Carbon Dioxide 26 mmol/L (22-30) 05/21/17 13:50 Anion Gap 16 (10-20) 05/21/17 13:50 BUN 13 mg/dl (7-17) 05/21/17 13:50 Creatinine 0.9 mg/dL (0.7-1.2) 05/21/17 13:50 Est GFR ( Amer) > 60 05/21/17 13:50 Est GFR (Non-Af Amer) > 60 05/21/17 13:50 Random Glucose 142 mg/dL (65-105) H 05/21/17 13:50 Calcium 9.2 mg/dL (8.4-10.2) 05/21/17 13:50 Total Bilirubin 0.4 mg/dl (0.2-1.3) 05/21/17 13:50 AST 26 U/L (14-36) 05/21/17 13:50 ALT 38 U/L (9-52) 05/21/17 13:50 Alkaline Phosphatase 56 U/L (38-126) 05/21/17 13:50 Troponin I < 0.0120 ng/mL (0.00-0.120) 05/21/17 13:50 Total Protein 8.0 G/DL (6.3-8.2) 05/21/17 13:50 Albumin 4.4 g/dL (3.5-5.0) 05/21/17 13:50 Globulin 3.6 gm/dL (2.2-3.9) 05/21/17 13:50 Albumin/Globulin Ratio 1.2 (1.0-2.1) 05/21/17 13:50 - Hospital Course Hospital Course: This is a 56 y/o female admitted for cough and pneumonitis. She as started on IV solumedrol and IV rocephin and responded very well. Discharge Exam - Head Exam Head Exam: ATRAUMATIC Discharge Plan - Follow Up Plan Condition: STABLE Disposition: HOME/ ROUTINE
[2017-05-23 12:30] VITALS: BP 119/71; PULSE 80; TEMP 97.5; O2SAT 95
== END 2017-05-23 16:00 | disposition home or self-care (01) | DRG 541 ==
LOC: H.ER 12:21 → H.ERHOLD 17:42 → H.TEL 20:52
PROVIDERS: ADMIT Family Medicine; ATTEND Family Medicine
PROC: 3E0F73Z Introduction of Anti-inflammatory into Respiratory Tract, Via Natural or Artificial Opening (ICD-10-PCS; principal; 2017-05-21)
PROC: 3E0234Z Introduction of Serum, Toxoid and Vaccine into Muscle, Percutaneous Approach (ICD-10-PCS; 2017-05-21)
DX: J44.0 Chronic obstructive pulmonary disease with (acute) lower respiratory infection (principal); J18.9 Pneumonia, unspecified organism; J45.901 Unspecified asthma with (acute) exacerbation; I10 Essential (primary) hypertension; E78.5 Hyperlipidemia, unspecified; K29.70 Gastritis, unspecified, without bleeding; E78.00 Pure hypercholesterolemia, unspecified; Z23 Encounter for immunization; Z87.440 Personal history of urinary (tract) infections

== ENCOUNTER 2017-11-12 09:22 | Emergency (ER) | payer MEDICAID ==
[2017-11-12 09:25] VITALS: BMI 26.6
[2017-11-12] MEDS ORDERED: Sodium Chloride 0.9% 1,000 ML IV STA (09:39)
[2017-11-12] MEDS ORDERED: Iohexol 240 (50 ml) PO ONE (09:39)
[2017-11-12] MEDS ORDERED: Iohexol 240 (50 ml) ONE (09:53)
--- NOTE | 2017-11-12 09:56 | ED PDOC ---
HPI: General Adult Time Seen by Provider: 11/12/17 09:29 Chief Complaint (Nursing): Flu-like Symptoms Chief Complaint (Provider): Abd pain History Per: Patient History/Exam Limitations: no limitations Onset/Duration Of Symptoms: Days (3) Additional Complaint(s): Pt. with abd pain upper and frontal headache that is mild. Not worst headache of her life. No neck pain, numbness, tingles. No vision changes. Headache was gradual onset. Abd pain is constant. Had fever for 3 days. Today had diarrhea and vomiting. No weakness, body aches, cough, congestion, runny nose. Urinates more freq. Has had headaches similar in the past. Past Medical History Reviewed: Nursing Documentation, Vital Signs Vital Signs: Last Vital Signs Temp 99.6 F 11/12/17 09:59 Pulse 102 H 11/12/17 09:26 Resp 16 11/12/17 09:26 BP 136/69 11/12/17 09:26 Pulse Ox 100 11/12/17 10:21 - Medical History PMH: Arthritis, Asthma, Diabetes, Gastritis, HTN, Hypercholesterolemia, Hyperlipidemia, Migraine Denies: HIV, Chronic Kidney Disease - Surgical History Surgical History: No Surg Hx - Family History Family History: States: Unknown Family Hx - Living Arrangements Living Arrangements: With Family - Home Medications Home Medications: Ambulatory Orders Medication Instructions Recorded Omeprazole [Prilosec] 20 mg PO DAILY 04/10/15 Albuterol HFA [Ventolin HFA 90 2 puff IH Q4H #1 puff 01/15/16 mcg/actuation (8 g)] Losartan Potassium [Cozaar] 12.5 mg PO DAILY 01/09/17 Albuterol 0.083% [Albuterol 0.083% 3 ml IH Q4 PRN #50 neb 01/25/17 Inhal Kat (2.5 mg/3 ml) UD] Nebulizer [Aeroeclipse] 1 each MC Q4 PRN #1 each 01/25/17 Azithromycin [Zithromax] 500 mg PO DAILY #5 tablet 05/23/17 Methylprednisolone [Medrol Dose 4 mg PO DAILY #21 mg 05/23/17 Pack (21 tabs)] - Allergies Allergies/Adverse Reactions: Allergies Allergy/AdvReac Type Severity Reaction Status Date / Time No Known Allergies Allergy Verified 05/21/17 12:25 Review of Systems ROS Statement: Except As Marked, All Systems Reviewed And Found Negative Constitutional: Positive for: Fever Gastrointestinal: Positive for: Nausea, Vomiting, Abdominal Pain, Diarrhea Neurological: Positive for: Headache, Dizziness Physical Exam - Reviewed Nursing Documentation Reviewed: Yes Vital Signs Reviewed: Yes - Physical Exam Appears: Positive for: Non-toxic, No Acute Distress Head Exam: Positive for: ATRAUMATIC, NORMAL INSPECTION, NORMOCEPHALIC Skin: Positive for: Normal Color, Warm, DRY Eye Exam: Positive for: EOMI, Normal appearance, PERRL ENT: Positive for: Normal ENT Inspection. Negative for: Nasal Congestion Neck: Positive for: Normal, Painless ROM, Supple Cardiovascular/Chest: Positive for: Regular Rate, Rhythm Respiratory: Positive for: CNT, Normal Breath Sounds Gastrointestinal/Abdominal: Positive for: Bowel Sounds, Soft, Tenderness ( across upper abd) Back: Positive for: Normal Inspection. Negative for: L CVA Tenderness, R CVA Tenderness Extremity: Positive for: Normal ROM. Negative for: Tenderness, Pedal Edema Neurologic/Psych: Positive for: Alert, scrap handler II-XII, Oriented. Negative for: Motor/Sensory Deficits, Aphasia, Facial Droop - Laboratory Results Result Diagrams: 11/12/17 10:20 11/12/17 10:20 Interpretation Of Abn Labs: no acute - ECG ECG: Positive for: Interpreted By Me, Viewed By Me ECG Rhythm: Positive for: Normal QRS, Normal ST Segment, Sinus Rhythm O2 Sat by Pulse Oximetry: 100 Pulse Ox Interpretation: Normal - Radiology X-Ray: Read By Radiologist X-Ray Interpretation: No Acute Disease - CT Scan/US ct Other Rad Studies (CT/US): Read By Radiologist Other Rad Interpretation: no acute - Progress ED Course And Treament: 1354: Stable. AAOx3. Pain free. Tolerated po. Fu with pcp. Disposition - Clinical Impression Clinical Impression: Abdominal pain, Dizziness - Patient ED Disposition Is Patient to be Admitted: No Counseled Patient/Family Regarding: Studies Performed, Diagnosis, Need For Followup - Disposition Referrals: [facility] [Outside] - 11/14/17 Disposition: Routine/Home Disposition Time: 13:00 Condition: STABLE Additional Instructions: Return if not better in 3 days. Instructions: Acute Abdominal Pain (ED), Dizziness (ED) Print Language: TUNISIAN
[2017-11-12 10:49] LABS: BASO % 0.4 % (0.0-2.0); EOS # 0.1 K/uL (0.0-0.7); EOS % 0.7 % (0.0-4.0); LYMPH # 2.1 K/uL (1.0-4.3); LYMPH % 21.7 % (20.0-40.0); MEAN CELL VOLUME 89.4 fl (81.0-99.0); MEAN CORPUSCULAR HEMOGLOBIN 30.9 pg (27.0-31.0); MEAN CORPUSCULAR HGB CONC 34.6 g/dL (33.0-37.0); MEAN PLATELET VOLUME 9.7 fl (7.2-11.7); MONO # 0.8 K/uL (0.0-0.8); MONO % 8.5 % (0.0-10.0); NEUT # 6.5 K/uL (1.8-7.0); NEUT % 68.7 % (50.0-75.0); NRBC % 0.1 % (0.0-0.0); RBC 4.53 Mil/uL (3.80-5.20); RED CELL DISTRIBUTION WIDTH 13.6 % (11.5-14.5); WHITE BLOOD COUNT 9.5 K/uL (4.8-10.8)
[2017-11-12 10:56] LABS: ALB/GLOB RATIO 1.1 (1.0-2.1); ALBUMIN 4.1 g/dL (3.5-5.0); ALT/SGPT 33 U/L (9-52); AST/SGOT 26 U/L (14-36); BLOOD UREA NITROGEN 12 mg/dl (7-17); CALCIUM 9.2 mg/dL (8.4-10.2); GFR AFRICAN-AMERICAN > 60; GFR NON-AFRICAN AMERICAN 57; LIPASE 154 U/L (23-300)
--- NOTE | 2017-11-12 11:05 | RAD ---
HISTORY: dyspnea COMPARISON: Chest radiograph dated 05/21/2017. FINDINGS: LUNGS: No active pulmonary disease. PLEURA: No significant pleural effusion identified, no pneumothorax apparent. CARDIOVASCULAR: Normal. OSSEOUS STRUCTURES: Unchanged. VISUALIZED UPPER ABDOMEN: Normal. OTHER FINDINGS: None. IMPRESSION: No active disease.
--- NOTE | 2017-11-12 11:43 | CT ---
PROCEDURE: CT HEAD WITHOUT CONTRAST. HISTORY: headache COMPARISON: None available. TECHNIQUE: Axial computed tomography images were obtained through the head/brain without intravenous contrast. Radiation dose: Total exam DLP = 906.1 mGy-cm. This CT exam was performed using one or more of the following dose reduction techniques: Automated exposure control, adjustment of the mA and/or kV according to patient size, and/or use of iterative reconstruction technique. FINDINGS: HEMORRHAGE: No intracranial hemorrhage. BRAIN: No mass effect or edema. No atrophy or chronic microvascular ischemic changes. VENTRICLES: Unremarkable. No hydrocephalus. CALVARIUM: Unremarkable. PARANASAL SINUSES: Unremarkable as visualized. No significant inflammatory changes. MASTOID AIR CELLS: Unremarkable as visualized. No inflammatory changes. OTHER FINDINGS: None. IMPRESSION: No acute intracranial pathology.
[2017-11-12] MEDS ORDERED: Iohexol 300 100 ML IJ ONE (12:10)
--- NOTE | 2017-11-12 13:02 | CT ---
PROCEDURE: CT Abdomen and Pelvis with contrast HISTORY: abd pain COMPARISON: None. TECHNIQUE: Contrast dose: 90 mL Omnipaque 300 Radiation dose: Total exam DLP = 647.8 mGy-cm. This CT exam was performed using one or more of the following dose reduction techniques: Automated exposure control, adjustment of the mA and/or kV according to patient size, and/or use of iterative reconstruction technique. FINDINGS: LOWER THORAX: Unremarkable. LIVER: Hepatic steatosis. No gross lesion or ductal dilatation. GALLBLADDER AND BILE DUCTS: Unremarkable. PANCREAS: Unremarkable. No gross lesion or ductal dilatation. SPLEEN: Unremarkable. ADRENALS: Unremarkable. No mass. KIDNEYS AND URETERS: Unremarkable. No hydronephrosis. No solid mass. VASCULATURE: Unremarkable. No aortic aneurysm. BOWEL: Unremarkable. No obstruction. No gross mural thickening. APPENDIX: Normal appendix. PERITONEUM: Unremarkable. No free fluid. No free air. LYMPH NODES: Unremarkable. No enlarged lymph nodes. BLADDER: Unremarkable. REPRODUCTIVE: Large 4.9 x 3.5 centimeter hypo attenuating fundal mass, likely degenerated fibroid. BONES: No acute fracture. OTHER FINDINGS: None. IMPRESSION: No acute abdominal pelvic pathology.
[2017-11-12 14:22] VITALS: BP 128/78; PULSE 91; RESP 15; TEMP 98.9; O2SAT 98
--- NOTE | 2017-11-13 11:26 | CARD ---
APPROVED REPORT EKG Measurement Heart [id number] [place] 170P44 [id number] <Conclusion> Normal sinus rhythm Normal ECG
== END 2017-11-12 14:22 | disposition home or self-care (01) ==
LOC: H.ER 09:22
DX: R10.9 Unspecified abdominal pain (principal); R42 Dizziness and giddiness; E11.9 Type 2 diabetes mellitus without complications; E78.00 Pure hypercholesterolemia, unspecified; I10 Essential (primary) hypertension; J45.909 Unspecified asthma, uncomplicated
CPT/HCPCS: 70450; 71045; 74177; 80053; 83690; 84484; 85025; 87804; 93005; 96374; 99283; J2765; J7040; Q9966; Q9967

== ENCOUNTER 2018-04-23 12:25 | Emergency (ER) | payer MEDICAID ==
[2018-04-23 12:33] VITALS: BMI 27.6
[2018-04-23] MEDS ORDERED: Sodium Chloride 0.9% 1,000 ML IV STA (12:58)
[2018-04-23] MEDS ORDERED: Alum-Mag Hydrox-Simethicone Susp (30 mL) PO STA (12:58)
[2018-04-23] MEDS ORDERED: Alum-Mag Hydrox-Simethicone Susp (30 mL) ONE (13:06)
--- NOTE | 2018-04-23 13:28 | ED PDOC ---
HPI: Abdomen Time Seen by Provider: 04/23/18 12:40 Chief Complaint (Nursing): Abdominal Pain Chief Complaint (Provider): Epigastric Pain, Gastritis History Per: Patient, Family (daughter at bedside) History/Exam Limitations: no limitations Onset/Duration Of Symptoms: Days (x8) Outside of [place] travel?: No Current Symptoms Are (Timing): Still Present Context: Food Location Of Pain/Discomfort: Epigastric Quality Of Discomfort: Cramping, Burning Associated Symptoms: Vomiting (x2). denies: Fever, Chills, Diarrhea, Chest Pain , Urinary Symptoms Additional Complaint(s): 57 year old female with a past medical history of hypertension, hypercholesterolemia, asthma, and gastritis presents to the emergency department complaining of worsening epigastric abdominal pain described as burning and cramping x8 days. Patient reports that her pain is an 8/10. She reports that her symptoms began after she ate a meal that contained beans. Patient also notes some nausea yesterday that persisted today and resulted in 2 episodes of non bloody, non bilious vomiting prior to arrival. She took a tablet of Nexium at 8am but it offered her no relief. Patient does note her current symptoms are consistent with prior flares of gastritis in the past. Denies fevers, chills, diarrhea, sick contacts, recent travel, rash, chest pain , shortness of breath, cough, urinary symptoms, flank pain. PMD:Isaiah Strickland Abnormal Vaginal Bleeding: No Last Menstral Period: More than 5 years ago Past Medical History Reviewed: Historical Data, Nursing Documentation, Vital Signs Vital Signs: Last Vital Signs Temp 98.2 F 04/23/18 16:14 Pulse 74 04/23/18 16:14 Resp 17 04/23/18 16:14 BP 112/72 04/23/18 16:14 Pulse Ox 99 04/27/18 00:47 - Medical History PMH: Arthritis, Asthma, Gastritis, HTN, Hypercholesterolemia, Hyperlipidemia, Migraine - Surgical History Other surgeries: Had mutiple subcutaneous cysts removed - Family History Family History: States: Unknown Family Hx - Social History Current smoker - smoking cessation education provided: No Alcohol: None Drugs: Denies - Home Medications Home Medications: Ambulatory Orders Medication Instructions Recorded Omeprazole [Prilosec] 20 mg PO DAILY 04/10/15 Albuterol HFA [Ventolin HFA 90 2 puff IH Q4H #1 puff 01/15/16 mcg/actuation (8 g)] Losartan Potassium [Cozaar] 12.5 mg PO DAILY 01/09/17 Albuterol 0.083% [Albuterol 0.083% 3 ml IH Q4 PRN #50 neb 01/25/17 Inhal Kat (2.5 mg/3 ml) UD] Nebulizer [Aeroeclipse] 1 each MC Q4 PRN #1 each 01/25/17 Azithromycin [Zithromax] 500 mg PO DAILY #5 tablet 05/23/17 Methylprednisolone [Medrol Dose 4 mg PO DAILY #21 mg 05/23/17 Pack (21 tabs)] Famotidine [Pepcid] 40 mg PO DAILY #10 tablet 04/23/18 Ondansetron ODT [Zofran ODT] 4 mg PO Q6 PRN #12 tab 04/23/18 - Allergies Allergies/Adverse Reactions: Allergies Allergy/AdvReac Type Severity Reaction Status Date / Time No Known Allergies Allergy Verified 04/23/18 12:38 Review of Systems ROS Statement: Except As Marked, All Systems Reviewed And Found Negative Constitutional: Negative for: Fever Cardiovascular: Negative for: Chest Pain Respiratory: Negative for: Shortness of Breath Gastrointestinal: Positive for: Vomiting, Abdominal Pain Skin: Negative for: Rash Physical Exam - Reviewed Nursing Documentation Reviewed: Yes Vital Signs Reviewed: Yes - Physical Exam Appears: Positive for: Non-toxic, No Acute Distress, Uncomfortable Head Exam: Positive for: ATRAUMATIC, NORMOCEPHALIC Skin: Positive for: Normal Color, Warm, Dry. Negative for: Rash Eye Exam: Positive for: EOMI, PERRL. Negative for: Nystagmus ENT: Positive for: Other (Mucus membranes moist. Airway patent, (-) stridor.) Neck: Positive for: Painless ROM, Supple Cardiovascular/Chest: Positive for: Regular Rate, Rhythm, Chest Non Tender Respiratory: Positive for: Normal Breath Sounds (Respirations even and nonlabored. Speaking in full sentences.). Negative for: Rales, Rhonchi, Wheezing, Respiratory Distress Gastrointestinal/Abdominal: Positive for: Bowel Sounds (active x4), Soft, Tenderness (epigastric tenderness to palpation). Negative for: Mass, Distended , Guarding, Rebound Back: Positive for: Normal Inspection. Negative for: L CVA Tenderness, R CVA Tenderness, Vertebral Tenderness Extremity: Positive for: Normal ROM. Negative for: Deformity Neurologic/Psych: Positive for: Alert, Oriented (x3), Gait (steady in ED). Negative for: Aphasia, Facial Droop - Laboratory Results Result Diagrams: 04/23/18 13:19 04/23/18 13:19 Urine POC: Negative Urine dip results: Positive for: Leukocyte Esterase (small), Blood (small), Protein (trace). Negative for: Nitrate, Ketones, Glucose, Bilirubin - ECG O2 Sat by Pulse Oximetry: 99 (RA) Pulse Ox Interpretation: Normal Medical Decision Making Medical Decision Makin Initial Impression 57 year old female presenting with abdominal pain, nausea, vomiting- probable gastritis Initial Plan: * CMP * Lipase * Udip * CBC * Lidocaine 2% viscous 15 mL PO * Aluminum Hydroxide 30 mL PO * NS 1000 ml IV 999 mls/hr * Protonix 40 mg IVP * Toradol 30 mg IVP * Zofran 4 mf IVP * Reevaluation 1325 Udip reviewed. U/A and U/C ordered. 1445 CBC and CMP reviewed and grossly unremarkable. H&H stable. Urinalysis with small hematuria. Patient notified of results and advised close follow up and repeat urinalysis examination as patient denies any urinary or renal colic symptoms. 1545 On re-evaluation, patient reports complete resolution of symptoms. On exam, patient remains AAOx3, in no acute distress. On exam, neck is supple, lungs CTA , cardiac RRR, neuro exam shows no focal findings. Tolerating PO intake without difficulty. VSS, stable for discharge. Diagnostic results d/w the patient in great detail. Dx of abdominal pain, gastritis, N&V d/w the patient. Based on history, exam and diagnostic results plan will be for discharge. Florien diet and fluids encouraged. Advised to follow up with primary care physician/clinic in 1-2 days. Advised to use medication as prescribed. Return to the emergency room at any time for any new or worsening symptoms. Patient states she fully agrees with and understands discharge instructions. States that she agrees with the plan and disposition. Verbalized and repeated discharge instructions and plan. I have given the patient opportunity to ask any additional questions. Documented by Frieda Uriarte acting as a scribe for Scarlett Calle PA-C. All medical record entries made by the Scribe were at my direction and personally dictated by me. I have reviewed the chart and agree that the record accurately reflects my personal performance of the history, physical exam, medical decision making, and the department course for this patient. I have also personally directed, reviewed, and agree with the discharge instructions and disposition. Disposition - Clinical Impression Clinical Impression: Abdominal pain in female, Gastritis, Nausea and vomiting - Patient ED Disposition Is Patient to be Admitted: No Counseled Patient/Family Regarding: Studies Performed, Diagnosis, Need For Followup, Rx Given - Disposition Referrals: Isaiah Morris MD [Family Provider] - Disposition: Routine/Home Disposition Time: 15:57 Condition: STABLE Additional Instructions: FOLLOW UP WITH PMD IN 1-2 DAYS WITHOUT FAIL. RETURN TO ED WITH ANY NEW OR WORSENING SYMPTOMS. TAKE MEDICATION PRESCRIBED FOR SYMPTOMS. Prescriptions: Famotidine [Pepcid] 40 mg PO DAILY #10 tablet Ondansetron ODT [Zofran ODT] 4 mg PO Q6 PRN #12 tab PRN Reason: Nausea/Vomiting Instructions: Gastritis, Acute Abdomen (Belly Pain), Adult (DC), Nausea and Vomiting, Adult, Stomach Ache and Stomach Upset Forms: [employer] (Djiboutian) Print Language: TELUGU - POA Present On Arrival: None Results - Lab Results Lab Results: 04/23/18 04/23/18 04/23/18 13:39 13:19 13:19 WBC 10.5 RBC 4.57 Hgb 14.3 Hct 41.8 MCV 91.6 D MCH 31.3 H MCHC 34.2 RDW 13.1 Plt Count 215 MPV 10.5 Neut % (Auto) 54.3 Lymph % (Auto) 34.3 [place] % (Auto) 10.5 H Eos % (Auto) 0.6 Baso % (Auto) 0.3 Neut # (Auto) 5.7 Lymph # (Auto) 3.6 [place] # (Auto) 1.1 H Eos # (Auto) 0.1 Baso # (Auto) 0.0 Sodium 138 Potassium 4.4 Chloride 95 L Carbon Dioxide 30 Anion Gap 17 BUN 18 H Creatinine 1.0 Est GFR ( Amer) > 60 Est GFR (Non-Af Amer) 57 Random Glucose 91 Calcium 9.1 Total Bilirubin 0.8 AST 44 H D ALT 25 Alkaline Phosphatase 49 Total Protein 8.2 Albumin 4.4 Globulin 3.8 Albumin/Globulin Ratio 1.2 Lipase 163 Urine Color Yellow Urine Clarity Cloudy Urine pH 6.0 Ur Specific [place] 1.018 Urine Protein Negative Urine Glucose (UA) Neg Urine Ketones Negative Urine Blood Small Urine Nitrate Negative Urine Bilirubin Negative Urine Urobilinogen 0.2-1.0 Ur Leukocyte Esterase Large Urine RBC (Auto) 6 H Urine Microscopic WBC 69 H Ur Squamous Epith Cells 1 Amorphous Sediment Rare H
[2018-04-23 14:12] LABS: CALCIUM 9.1 mg/dL (8.4-10.2); GFR AFRICAN-AMERICAN > 60; GFR NON-AFRICAN AMERICAN 57; LIPASE 163 U/L (23-300)
[2018-04-23 14:15] LABS: BASO % 0.3 % (0.0-2.0); EOS # 0.1 K/uL (0.0-0.7); EOS % 0.6 % (0.0-4.0); HEMOGLOBIN 14.3 g/dL (12.0-16.0); LYMPH # 3.6 K/uL (1.0-4.3); LYMPH % 34.3 % (20.0-40.0); MEAN CELL VOLUME 91.6 fl (81.0-99.0); MEAN CORPUSCULAR HEMOGLOBIN 31.3 pg (27.0-31.0); MEAN CORPUSCULAR HGB CONC 34.2 g/dL (33.0-37.0); MEAN PLATELET VOLUME 10.5 fl (7.2-11.7); MONO # 1.1 K/uL (0.0-0.8); MONO % 10.5 % (0.0-10.0); NEUT # 5.7 K/uL (1.8-7.0); NEUT % 54.3 % (50.0-75.0); NRBC % 0.1 % (0.0-0.0); RBC 4.57 Mil/uL (3.80-5.20); RED CELL DISTRIBUTION WIDTH 13.1 % (11.5-14.5); WHITE BLOOD COUNT 10.5 K/uL (4.8-10.8)
[2018-04-23 14:32] LABS: ALB/GLOB RATIO 1.2 (1.0-2.1); ALBUMIN 4.4 g/dL (3.5-5.0); ALT/SGPT 25 U/L (9-52); AST/SGOT 44 U/L (14-36); BLOOD UREA NITROGEN 18 mg/dl (7-17)
[2018-04-23 14:39] LABS: SQUAMOUS EPITHIAL 1 /hpf (0-5); URINE AMORPHOUS SEDIMENT RARE /ul (<OCC); URINE BILIRUBIN NEGATIVE (NEGATIVE); URINE BLOOD SMALL (NEGATIVE); URINE CLARITY CLOUDY (Clear); URINE COLOR YELLOW (YELLOW); URINE GLUCOSE (UA) NEG (Normal); URINE LEUKOCYTE ESTERASE LARGE Leu/uL (Negative); URINE PROTEIN NEGATIVE (NEGATIVE); URINE UROBILINOGEN 0.2-1.0 mg/dL (0.2-1.0)
[2018-04-23 16:15] VITALS: BP 112/72; PULSE 74; RESP 17; TEMP 98.2
[2018-04-27 00:35] VITALS: O2SAT 99
== END 2018-04-23 16:14 | disposition home or self-care (01) ==
LOC: H.ER 12:25
DX: K29.70 Gastritis, unspecified, without bleeding (principal); R11.2 Nausea with vomiting, unspecified; R10.13 Epigastric pain
CPT/HCPCS: 80053; 81003; 83690; 85025; 87086; 96361; 96374; 96375; 99285; C9113; J1885; J2405; J7030

== ENCOUNTER 2018-07-03 09:33 | Emergency (ER) | payer MEDICAID ==
[2018-07-03 09:34] VITALS: BMI 27.6
[2018-07-03] MEDS ORDERED: Sodium Chloride 0.9% 1,000 ML IV STA (10:18)
--- NOTE | 2018-07-03 10:46 | ED PDOC ---
HPI: General Adult Time Seen by Provider: 07/03/18 10:02 Chief Complaint (Nursing): Flu-like Symptoms Chief Complaint (Provider): Flu-like Symptoms History Per: Patient History/Exam Limitations: no limitations Onset/Duration Of Symptoms: Days (x2) Current Symptoms Are (Timing): Still Present Additional Complaint(s): 57 year old female with a past medical history of diabetes and lung nodule ( being followed by research chemist) presenting for evaluation of cough productive of yellow sputum associated with fever, body aches, and sore throat x2 days. Patient denies any shortness of breath. Past Medical History Reviewed: Historical Data, Nursing Documentation, Vital Signs Vital Signs: Last Vital Signs Temp 100.4 F H 07/03/18 09:45 Pulse 109 H 07/03/18 09:45 Resp 17 07/03/18 09:45 BP 126/81 07/03/18 09:45 Pulse Ox 97 07/03/18 10:48 - Medical History PMH: Arthritis, Asthma, Diabetes, Gastritis, HTN, Hypercholesterolemia, Hyperlipidemia, Migraine Denies: HIV, Chronic Kidney Disease Other PMH: lung nodule (being followed by research chemist) - Surgical History Surgical History: No Surg Hx - Family History Family History: States: Unknown Family Hx - Home Medications Home Medications: Ambulatory Orders Medication Instructions Recorded Omeprazole [Prilosec] 20 mg PO DAILY 04/10/15 Albuterol HFA [Ventolin HFA 90 2 puff IH Q4H #1 puff 01/15/16 mcg/actuation (8 g)] Losartan Potassium [Cozaar] 12.5 mg PO DAILY 01/09/17 Albuterol 0.083% [Albuterol 0.083% 3 ml IH Q4 PRN #50 neb 01/25/17 Inhal Kat (2.5 mg/3 ml) UD] Nebulizer [Aeroeclipse] 1 each MC Q4 PRN #1 each 01/25/17 Azithromycin [Zithromax] 500 mg PO DAILY #5 tablet 05/23/17 Methylprednisolone [Medrol Dose 4 mg PO DAILY #21 mg 05/23/17 Pack (21 tabs)] Famotidine [Pepcid] 40 mg PO DAILY #10 tablet 04/23/18 Ondansetron ODT [Zofran ODT] 4 mg PO Q6 PRN #12 tab 04/23/18 Azithromycin [Zithromax] 500 mg PO DAILY #6 tab 07/03/18 - Allergies Allergies/Adverse Reactions: Allergies Allergy/AdvReac Type Severity Reaction Status Date / Time No Known Allergies Allergy Verified 04/23/18 12:38 Review of Systems ROS Statement: Except As Marked, All Systems Reviewed And Found Negative Constitutional: Positive for: Fever, Other (body aches) ENT: Positive for: Throat Pain Respiratory: Positive for: Cough, Sputum Physical Exam - Reviewed Nursing Documentation Reviewed: Yes Vital Signs Reviewed: Yes - Physical Exam Appears: Positive for: Non-toxic, No Acute Distress Head Exam: Positive for: ATRAUMATIC, NORMAL INSPECTION, NORMOCEPHALIC Skin: Positive for: Normal Color, Warm, Dry. Negative for: Rash Eye Exam: Positive for: EOMI, Normal appearance, PERRL ENT: Positive for: Normal ENT Inspection Neck: Positive for: Normal, Painless ROM, Supple Cardiovascular/Chest: Positive for: Regular Rate, Rhythm. Negative for: Murmur Respiratory: Positive for: Rhonchi (scattered). Negative for: Wheezing, Respiratory Distress Gastrointestinal/Abdominal: Positive for: Normal Exam, Soft. Negative for: Tenderness Back: Positive for: Normal Inspection. Negative for: L CVA Tenderness, R CVA Tenderness, Vertebral Tenderness Extremity: Positive for: Normal ROM. Negative for: Tenderness, Deformity Neurologic/Psych: Positive for: Alert, Oriented. Negative for: Motor/Sensory Deficits - Laboratory Results Result Diagrams: 07/03/18 10:43 07/03/18 11:05 - ECG O2 Sat by Pulse Oximetry: 97 (RA) Pulse Ox Interpretation: Normal Medical Decision Making Medical Decision Makin Plan: -CMP -CBC -CXR -Motrin 600mg PO -1L NS IV at 200mL/hour -Reevaluation Scribe Attestation: Documented by Fede Martinez, acting as a scribe for Parveen Ayala MD. Provider Scribe Attestation: All medical record entries made by the Scribe were at my direction and personally dictated by me. I have reviewed the chart and agree that the record accurately reflects my personal performance of the history, physical exam, medical decision making, and the department course for this patient. I have also personally directed, reviewed, and agree with the discharge instructions and disposition. Disposition - Clinical Impression Clinical Impression: Bronchitis - Patient ED Disposition Is Patient to be Admitted: No Counseled Patient/Family Regarding: Studies Performed, Diagnosis, Need For Followup, Rx Given - Disposition Referrals: [facility] [Outside] Disposition: Routine/Home Disposition Time: 12:46 Condition: FAIR Prescriptions: Azithromycin [Zithromax] 500 mg PO DAILY #6 tab Instructions: Acute Bronchitis Forms: [facility] (Kyrgyz)
--- NOTE | 2018-07-03 11:08 | RAD ---
Date of service: 07/03/2018 HISTORY: cough COMPARISON: Chest radiograph dated 11/12/2017. TECHNIQUE: Chest PA and lateral FINDINGS: LUNGS: No active pulmonary disease. PLEURA: No significant pleural effusion identified. No pneumothorax apparent. CARDIOVASCULAR: Cardiomediastinal silhouette stably prominent. OSSEOUS STRUCTURES: Unchanged. VISUALIZED UPPER ABDOMEN: Normal. OTHER FINDINGS: None. IMPRESSION: No active disease.
[2018-07-03 11:19] LABS: BASO % 0.4 % (0.0-2.0); EOS % 0.5 % (0.0-4.0); HEMOGLOBIN 14.2 g/dL (12.0-16.0); LYMPH # 2.4 K/uL (1.0-4.3); LYMPH % 22.4 % (20.0-40.0); MEAN CELL VOLUME 90.4 fl (81.0-99.0); MEAN CORPUSCULAR HEMOGLOBIN 31.2 pg (27.0-31.0); MEAN CORPUSCULAR HGB CONC 34.5 g/dL (33.0-37.0); MEAN PLATELET VOLUME 10.3 fl (7.2-11.7); MONO % 9.4 % (0.0-10.0); NEUT # 7.3 K/uL (1.8-7.0); NEUT % 67.3 % (50.0-75.0); NRBC % 0.2 % (0.0-0.0); RBC 4.54 Mil/uL (3.80-5.20); RED CELL DISTRIBUTION WIDTH 13.2 % (11.5-14.5); WHITE BLOOD COUNT 10.8 K/uL (4.8-10.8)
[2018-07-03 11:23] LABS: ALB/GLOB RATIO 1.1 (1.0-2.1); ALBUMIN 3.9 g/dL (3.5-5.0); ALT/SGPT 31 U/L (9-52); AST/SGOT 29 U/L (14-36); BLOOD UREA NITROGEN 8 mg/dl (7-17); CALCIUM 8.9 mg/dL (8.4-10.2); GFR NON-AFRICAN AMERICAN 57
[2018-07-03 12:56] VITALS: BP 132/77; PULSE 89; RESP 20; TEMP 98.6; O2SAT 98
== END 2018-07-03 12:56 | disposition home or self-care (01) ==
LOC: H.ER 09:33
DX: J40 Bronchitis, not specified as acute or chronic (principal); J45.909 Unspecified asthma, uncomplicated; I10 Essential (primary) hypertension; E11.9 Type 2 diabetes mellitus without complications
CPT/HCPCS: 71046; 80053; 85025; 99283; J7030

== ENCOUNTER 2018-08-25 23:31 | Emergency (ER) | payer SELFPAY ==
[2018-08-25 23:32] VITALS: BMI 27.6
[2018-08-25 23:37] VITALS: O2SAT 99
[2018-08-25] MEDS ORDERED: Sodium Chloride 0.9% 1,000 ML IV STA (23:43)
[2018-08-25] MEDS ORDERED: Morphine 4 MG/ML VIAL IVP ONE (23:47)
[2018-08-26] MEDS ORDERED: Morphine 4 MG/ML VIAL ONE (00:05)
--- NOTE | 2018-08-26 00:57 | ED PDOC ---
HPI: Abdomen Time Seen by Provider: 08/25/18 23:40 Chief Complaint (Nursing): Abdominal Pain Chief Complaint (Provider): Abdominal Pain History Per: Patient History/Exam Limitations: no limitations Onset/Duration Of Symptoms: Hrs (x4) Current Symptoms Are (Timing): Still Present Additional Complaint(s): 58 year old female with pmHx of HTN, dyslipidemia, gastritis, and arthritis, presents to ED with complaints of abdominal cramping and pain associated with nausea with 2 episodes of vomiting 4 hours prior to arrival. Patient reports feeling constipated and took laxatives all day until she was able to produce a small bowel movement. She does not offer any further medical complaints. PCP: Dr. Elida Martini Past Medical History Reviewed: Historical Data, Nursing Documentation, Vital Signs Vital Signs: Last Vital Signs Temp 98.1 F 08/25/18 23:35 Pulse 106 H 08/25/18 23:35 Resp 18 08/25/18 23:35 BP 133/80 08/25/18 23:35 Pulse Ox 99 08/25/18 23:35 - Medical History PMH: Arthritis, Asthma, Diabetes, Gastritis, HTN, Hypercholesterolemia, Hyperlipidemia, Migraine Denies: HIV, Chronic Kidney Disease - Family History Family History: States: Unknown Family Hx - Social History Current smoker - smoking cessation education provided: No Alcohol: None Drugs: Denies - Home Medications Home Medications: Ambulatory Orders Medication Instructions Recorded Omeprazole [Prilosec] 20 mg PO DAILY 04/10/15 Albuterol HFA [Ventolin HFA 90 2 puff IH Q4H #1 puff 01/15/16 mcg/actuation (8 g)] Losartan Potassium [Cozaar] 12.5 mg PO DAILY 01/09/17 Albuterol 0.083% [Albuterol 0.083% 3 ml IH Q4 PRN #50 neb 01/25/17 Inhal Kat (2.5 mg/3 ml) UD] Nebulizer [Aeroeclipse] 1 each MC Q4 PRN #1 each 01/25/17 Azithromycin [Zithromax] 500 mg PO DAILY #5 tablet 05/23/17 Methylprednisolone [Medrol Dose 4 mg PO DAILY #21 mg 05/23/17 Pack (21 tabs)] Famotidine [Pepcid] 40 mg PO DAILY #10 tablet 04/23/18 Ondansetron ODT [Zofran ODT] 4 mg PO Q6 PRN #12 tab 04/23/18 Azithromycin [Zithromax] 500 mg PO DAILY #6 tab 07/03/18 - Allergies Allergies/Adverse Reactions: Allergies Allergy/AdvReac Type Severity Reaction Status Date / Time No Known Allergies Allergy Verified 04/23/18 12:38 Review of Systems ROS Statement: Except As Marked, All Systems Reviewed And Found Negative Gastrointestinal: Positive for: Nausea, Vomiting (x2), Abdominal Pain (cramping), Constipation Physical Exam - Reviewed Nursing Documentation Reviewed: Yes Vital Signs Reviewed: Yes - Physical Exam Appears: Positive for: Non-toxic, Uncomfortable Head Exam: Positive for: ATRAUMATIC, NORMAL INSPECTION, NORMOCEPHALIC Skin: Positive for: Normal Color Eye Exam: Positive for: Normal appearance ENT: Positive for: Normal ENT Inspection Neck: Positive for: Normal Cardiovascular/Chest: Positive for: Regular Rate, Rhythm Respiratory: Positive for: Normal Breath Sounds. Negative for: Respiratory Distress Gastrointestinal/Abdominal: Positive for: Soft, Tenderness (epigastric), Distended (mildly) Back: Positive for: Normal Inspection. Negative for: L CVA Tenderness, R CVA Tenderness Extremity: Positive for: Normal ROM (upper/lower) Neurologic/Psych: Positive for: Alert, Oriented - Laboratory Results Result Diagrams: 08/26/18 02:05 08/26/18 02:05 - ECG O2 Sat by Pulse Oximetry: 99 (RA) Pulse Ox Interpretation: Normal Medical Decision Making Medical Decision Making: Initial Impression: 58 year old female with abdominal pain in setting of laxative use for constipation. Initial Plan: * CT ABD/pelvis with IV contrast * EKG * Labs * Morphine 4mg IVP * IV fluids * Pepcid 20mg IV * Zofran 4mg IV Time: 0300 --Upon provider reevaluation, patient reports a large BM at 0130 with resolution of all symptoms and requesting to be discharged home without imaging performed. Labs reviewed: significant for elevated WBC, however, patient states she feels better. Patient will be discharged home and instructed about appropriate use of laxatives. Counseling was provided and all questions were answered regarding diagnosis. There is agreement to discharge plan. Return if symptoms persist or worsen. Clinical Impression: Constipation; Abdominal pain - Scribe Attestation: Documented by Shannon Jerry, acting as a scribe for Сергей Muñoz MD. Provider Scribe Attestation: All medical record entries made by the Scribe were at my direction and personally dictated by me. I have reviewed the chart and agree that the record accurately reflects my personal performance of the history, physical exam, medical decision making, and the department course for this patient. I have also personally directed, reviewed, and agree with the discharge instructions and disposition. Disposition - Clinical Impression Clinical Impression: Abdominal pain, Constipation - Patient ED Disposition Is Patient to be Admitted: No Counseled Patient/Family Regarding: Studies Performed, Diagnosis, Need For Followup - Disposition Disposition: Routine/Home Disposition Time: 01:30 Condition: STABLE Instructions: Constipation in Adults Forms: [employer] (Yi) Print Language: SLOVENIAN
[2018-08-26 02:21] LABS: BASO % 0.3 % (0.0-2.0); EOS # 0.1 K/uL (0.0-0.7); EOS % 0.5 % (0.0-4.0); HEMOGLOBIN 14.4 g/dL (12.0-16.0); LYMPH # 5.1 K/uL (1.0-4.3); LYMPH % 33.7 % (20.0-40.0); MEAN CELL VOLUME 94.2 fl (81.0-99.0); MEAN CORPUSCULAR HEMOGLOBIN 30.5 pg (27.0-31.0); MEAN CORPUSCULAR HGB CONC 32.3 g/dL (33.0-37.0); MEAN PLATELET VOLUME 10.8 fl (7.2-11.7); MONO # 1.2 K/uL (0.0-0.8); MONO % 7.7 % (0.0-10.0); NEUT # 8.7 K/uL (1.8-7.0); NEUT % 57.8 % (50.0-75.0); NRBC % 0.2 % (0.0-0.0); RBC 4.73 Mil/uL (3.80-5.20); RED CELL DISTRIBUTION WIDTH 13.3 % (11.5-14.5)
[2018-08-26 03:46] VITALS: RESP 17
[2018-08-26 03:48] VITALS: BP 133/82; PULSE 84; TEMP 98.3
--- NOTE | 2018-08-26 13:45 | CARD ---
APPROVED REPORT Date of service: 08/26/2018 EKG Measurement Heart [id number] <Conclusion> Normal sinus rhythm Normal ECG
== END 2018-08-26 03:21 | disposition home or self-care (01) ==
LOC: H.ER 23:31
DX: R11.2 Nausea with vomiting, unspecified (principal); K59.00 Constipation, unspecified; R10.9 Unspecified abdominal pain; E11.9 Type 2 diabetes mellitus without complications; I10 Essential (primary) hypertension; J45.909 Unspecified asthma, uncomplicated
CPT/HCPCS: 85025; 93005; 96361; 96374; 96375; 99284; J2270; J2405; J7030